=== PATIENT | male | born 1970 | race Caucasian/White ===

== ENCOUNTER 2019-07-06 10:39 | Day surgery (SDC) | payer BC ==
[~2019-07-06] VITALS: Ht 175.3 cm; Wt 94.3 kg
[~2019-07-06 10:39] MED LIST: DICLOFENAC SODI75 MG PO; KLONOPIN0.5 MG PO; PEPCID20 MG PO; REMERON15 M2 PO; VITAMIN C500 M2 PO; [UNRECOGNIZED DRUG - OTHER] PO
[2019-07-06 11:45] VITALS: BP 134/85
[2019-07-06 16:28] VITALS: BP 134/85
--- NOTE | 2019-07-07 08:05 | EKG ---
[address] [address] ELECTROCARDIOGRAM REPORT Name: ROSANAVERÓNICA JR Room #: DEP [facility].#: [id number] Admission: 07/06/19 Attend Phys: Quinn Marr MD Discharge: 07/06/19 Date of : 68 Report #: [id number] THIS REPORT FOR: //name// [facility] Test Date: 2019-07-06 Test Time: 11:57:40 Pat Name: VERÓNICA WAYNE Department: Room: 150 5 Gender: M Telephone Repairer: KELVIN : 1970 Requested By: Quinn Marr Order Number: [id number] MD: Jos Mancuso Measurements Intervals [place] Rate: 66 P: 10 ID: 180 QRS: 21 QRSD: 99 T: 10 QT: 396 QTc: 415 Interpretive Statements Sinus rhythm Borderline T abnormalities, inferior leads Baseline wander in lead(s) I No previous ECG available for comparison Electronically Signed On 07-07-2019 8:05:39 CDT by Jos Mancuso [email or web address] <ELECTRONICALLY SIGNED> By: Jos Mancuso MD 07/07/19 0805 1157 115 Jos Mancuso MD /MAIKOL
--- NOTE | 2019-07-07 09:18 | O ---
[address] [address] OPERATIVE REPORT Name: ROSANAVERÓNICA JR Room #: DEP [facility]..#: [id number] Admission: 07/06/19 Attend Phys: Quinn Marr MD Discharge: 07/06/19 Date of : 68 Report #: [id number] THIS REPORT FOR: //name// CC: Gale Marr DATE OF SERVICE: 07/06/2019 SERVICE: Orthopedics. FACILITY: [facility]. SURGEON: Quinn Marr MD DISTRIBUTOR OPERATOR: Zora Infante NP PREOPERATIVE DIAGNOSES: 1. Right knee pain. 2. Right knee medial meniscus tear. 3. Right knee medial femoral condyle articular cartilage lesion. 4. Right knee lateral meniscus tear. 5. Status post right knee partial medial meniscectomy. POSTOPERATIVE DIAGNOSES: 1. Right knee pain. 2. Right knee medial meniscus tear. 3. Right knee medial femoral condyle articular cartilage lesion. 4. Right knee lateral meniscus tear. 5. Status post right knee partial medial meniscectomy. PROCEDURES: 1. Right knee arthroscopic medial meniscus repair. 2. Right knee arthroscopic osteochondral allograft transplantation to the medial femoral condyle. 3. Right knee arthroscopic partial medial meniscectomy. 4. Right knee arthroscopic chondroplasty COMPLICATIONS: None. DRAINS: None. SPECIMENS: Articular cartilage lesion, which was discarded once cored out. ANESTHESIA: General. FINDINGS: [address] [address] OPERATIVE REPORT Name: VERÓNICA WAYNE JR Room #: DEP [facility]#: [id number] Admission: 07/06/19 Attend Phys: Quinn Marr MD Discharge: 07/06/19 Date of : 68 Report #: [id number] 1. 10 mm articular cartilage plug allograft. 2. 0.9 mm meniscal tape x 2 for a cerclage repair of posterior horn of medial meniscus tear. 3. Small inner rim partial lateral meniscus tear, treated with meniscectomy (less than 5% meniscal volume resection). 4. 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 5. Focal area of articular cartilage chondromalacia of the lateral patellar facet and trochlea. 6. Grade 2 and 3 chondromalacia of the medial femoral condyle over approximately 50% surface area with a 10 mm diameter grade 4 lesion on the posterior portion of the medial femoral condyle, treated with OATS. 7. There was a residual area of 4 mm in diameter at the maximum dimension at the edge of the osteochondral plug that was treated with the microfracture here for a stimulation of fibrocartilage healing. HISTORY OF PRESENT ILLNESS: The patient is a 49-year-old gentleman with a history of a persistent progressive right knee pain. He previously had a meniscectomy, but had an acute injury this summer when he was building a boat dock, heading up the stairs at his home. He has had persistent pain since then and that was worsening such that he could not walk and he did MRI that showed a maintained joint space. He was not therefore a candidate for arthroplasty and he was referred for a consideration of a reconstruction procedure. We performed an MRI and we considered an approach at conservative management, but his symptoms were worsening and his ability to continue working had worsened such that he was off work and unable to return, pending any surgical intervention. We, therefore, decided to proceed with the approach to address the medial femoral condyle articular cartilage lesion as well as preserve the medial meniscus as much as possible. Risks, benefits, alternatives, and indications of surgery were discussed with him in detail. Risks include, but not limited to, pain, bleeding, infection, injury to nerves or blood vessels, persistent pain despite surgical intervention, failure of any repairs or cartilage reconstructions, progression of any preexisting chondral injury, stiffness, need for further surgery including arthroplasty as there could be early osteoarthritis present in this gentleman's knee as well as complications related to anesthesia such as stroke, heart attack, pulmonary complications, thromboembolic disease, and . Despite these risks, he wished to proceed. PROCEDURE IN DETAIL: After right lower extremity was correctly identified in preoperative holding as operative extremity, the patient was taken to the operating room, where general anesthesia was induced without complication. He was padded appropriately. Prophylactic antibiotics were administered at appropriate time. Tourniquet was applied to right leg. Right lower extremity was then prepped and draped in standard sterile fashion. Time-out procedure was performed. An Esmarch was used to exsanguinate. Tourniquet was inflated to 250 mmHg. Standard anterolateral viewing portal was established followed by [address] [address] OPERATIVE REPORT Name: VERÓNICA WAYNE JR Room #: DEP [facility] [place]#: [id number] Admission: 07/06/19 Attend Phys: Quinn Marr MD Discharge: 07/06/19 Date of : 68 Report #: [id number] anterior medial working portal. Diagnostic arthroscopy revealed the above articular cartilage findings. There was a tear of the posterior horn of the lateral meniscus that was both horizontal and radial. The radial was on the femoral surface and left a flap tear more anteriorly at the posterior horn and body junction. The horizontal tear involved the posterior horn of the meniscus and if that had been resected, would have essentially been a subtotal meniscectomy and would have involved the meniscal root as well. I therefore wanted to preserve that for as much meniscal retention as possible. There was an otherwise stable posterior horn aside from the horizontal tear that was running in an oblique fashion. I used an Arthrex meniscal Scorpion and placed to secure cerclage sutures around it and closed down the horizontal tear, which provided a very stable repair at that point. A shaver was used to complete the partial meniscectomy medially. The medial femoral condyle was evaluated. There was some loose articular cartilage. There was a clear grade 4 lesion and then when this was debrided back to a stable perimeter, it measured 10 mm as the preoperative templating suggested and so, I made plans to perform the OATS. Leg was placed in a [id number] position and the lateral compartment was evaluated. Chondroplasty was performed to the lateral tibial plateau, but the lateral femoral condyle was very healthy. The lateral meniscus was healthy as well other than a small inner rim radial tear at the posterior horn that was treated with a partial lateral meniscectomy with the shaver to a stable perimeter and overall well over 95% of the meniscal volume was retained. Leg was then placed in a 90-degree position and we proceeded with coring out of the recipient lesion to a depth of 10-11 mm and then the osteochondral plug, which was lavaged of the medium that it was delivered and was then placed through the arthroscopic anteromedial portal into the lesion and then gently tamped into position to appropriate depth. It was stable after tamping was completed. There was a small flange of grade 4 lesion working off of the anteromedial side of the articular cartilage graft and it was 4 mm at the largest diameter. I did not want to perform any more plugs, as I thought this would be excessive and was otherwise the OATS that provided good coverage with the allograft. K-wire was then used to perform 4 microfracture punctures in this residual grade 4 portion with the hopes that this will fill with fibrocartilage and make for uniform articular cartilage surface. At this point, the knee was placed into extension. The chondroplasty was completed, the arthroscopic debris was lavaged out of the knee, the effusion was drained, and the instruments were removed. The larger graft incision was closed with a deep stitch followed by a superficial stitch and then Steri-Strips and the portal site was closed as well. Sterile dressing was applied followed by a compression stocking, a PolarCare device, and knee immobilizer. The patient was awakened from anesthesia and taken to recovery room in a stable condition. There were no complications and all counts were recorded as correct. [address] [address] OPERATIVE REPORT Name: VERÓNICA WAYNE Angely GRIER Room #: DEP [facility]#: [id number] Admission: 07/06/19 Attend Phys: Qunin Marr MD Discharge: 07/06/19 Date of : 68 Report #: [id number] The patient will be weightbearing as tolerated, range of motion as tolerated early. There will be no significant restrictions otherwise. <ELECTRONICALLY SIGNED> By: Quinn Marr MD 07/07/19 0918 1635 1842 Quinn Marr MD /nt
== END 2019-07-06 16:57 | disposition home or self-care (01) ==
LOC: OR 10:39 → TBA 10:41 → OR 12:09
DX: M25.561 Pain in right knee (principal); S83.241A Other tear of medial meniscus, current injury, right knee, initial encounter; S83.281A Other tear of lateral meniscus, current injury, right knee, initial encounter; M94.8X6 Other specified disorders of cartilage, lower leg; K21.9 Gastro-esophageal reflux disease without esophagitis; F41.9 Anxiety disorder, unspecified; Z98.890 Other specified postprocedural states; Z85.828 Personal history of other malignant neoplasm of skin; Z79.899 Other long term (current) drug therapy; X58.XXXA Exposure to other specified factors, initial encounter; Y93.89 Activity, other specified; Y92.89 Other specified places as the place of occurrence of the external cause; Y99.8 Other external cause status
CPT/HCPCS: 50010; 50101; 50405; 51038; 51277; 51320; 52001; 52282; 53078; 54170; 55430; 56527; 57007; 57103; 57180; 62110; 62900; 64039; 65020; 65040; 65105; 70005